=== PATIENT | male | born 1940 | race Caucasian/White ===

== ENCOUNTER 2019-04-03 06:53 | Inpatient (IN) | payer OTHER, BC ==
[2019-03-16 17:02] VITALS: BMI 29.8
[~2019-04-03 06:53] MED LIST: VANCOMYCIN 1,000 MG VIAL (RESTRICTED TO ID ONLY) IVPB ONE
[2019-04-03] MEDS ORDERED: CELECOXIB 200 MG CAPSULE PO ONE (07:05)
[2019-04-03] MEDS ORDERED: CEFAZOLIN 2 GM in DEXTROSE 5%-WATER - 50 ML IVPB ONE (07:05)
[2019-04-03] MEDS ORDERED: TRANEXAMIC ACID 1000 MG/10 ML VIAL IVPUSH ONE (07:05)
[2019-04-03] MEDS ORDERED: VANCOMYCIN 1,000 MG VIAL (RESTRICTED TO ID ONLY) ONE (07:43)
[2019-04-03] MEDS ORDERED: ceFAZolin SODIUM 1 GM VIAL ONE (07:43)
--- NOTE | 2019-04-03 07:59 | HP ---
Satellite [facility] - Chief Complaint Chief Complaint: left hip pain - Past Medical History Allergies/Adverse Reactions: Allergies Allergy/AdvReac Type Severity Reaction Status Date / Time No Known Allergies Allergy Verified 04/03/19 07:35 - Current Medications Current Medications: Home Medications Medication Instructions Recorded Citalopram Hydrobromide 20 mg PO DAILY 03/16/19 [Citalopram HBr] Diazepam 2 mg PO DAILY 03/16/19 Mirtazapine 15 mg PO HS 03/16/19 Tamsulosin HCl 0.4 mg PO DAILY 03/16/19 Satellite Physical Exam - Physical Examination Vital Signs: Vital Signs Period Temp Pulse Resp BP Sys/Chiang Pulse Ox Last 24 Hr 97.6 F 64 16 135/79 95 General Appearance: Well Nourished, Well Developed, Alert & Oriented x3 ENT: Clear Lung: Normal air movement Extremities: Other (left hip- + ttp, decr rom, nvi, xrays show grade 4 hip djd) Neurological: Intact, Alert, Oriented Satellite Impression/Plan - Impression/Plan Impression: left hip djd Operative Procedure: left jensen thr Date to be Performed: 04/03/19
[2019-04-03] MEDS ORDERED: DEXAMETHASONE SOD PHOSPHATE/PF 10 MG/ML SDV ONE (08:13)
[2019-04-03] MEDS ORDERED: MIDAZOLAM HCL 2 MG/2 ML SINGLE DOSE VIAL ONE ×2 (08:13→09:02)
[2019-04-03] MEDS ORDERED: EPINEPHrine/PF 1 MG/1 ML (1:1,000) AMPULE ONE (08:59)
[2019-04-03] MEDS ORDERED: BUPIVACAINE HCL/PF 0.5% (5 MG/ML) 30 ML VIAL IJ ONE (09:27)
[2019-04-03] MEDS ORDERED: PROPOFOL 20 ML ONE ×4 (10:06)
[2019-04-03] MEDS ORDERED: TRANEXAMIC ACID 1000 MG/10 ML VIAL ONE (10:14)
[2019-04-03] MEDS ORDERED: ONDANSETRON 4 MG/2 ML VIAL IVPUSH PRN ×2 (10:15→12:04)
[2019-04-03] MEDS ORDERED: LACTATED RINGERS SOLUTION 1,000 ML IV SCH (10:15)
[2019-04-03] MEDS ORDERED: MAG HYDROX/AL HYDROX/SIMETH 30 ML UNIT-DOSE CUP PO PRN (10:15)
[2019-04-03] MEDS ORDERED: MAGNESIUM HYDROX 2400MG/30ML ORAL SUSPENSION 30 ML CUP PO PRN (10:15)
[2019-04-03] MEDS ORDERED: ePHEDrine SULFATE 50 MG/1 ML AMPULE ONE (11:05)
[2019-04-03] MEDS ORDERED: VANCOMYCIN 1,000 MG VIAL (RESTRICTED TO ID ONLY) IVPB ONE (11:30)
--- NOTE | 2019-04-03 11:50 | OP ---
Operative Note - Note: Operative Date: 04/03/19 (riddhi) Pre-Operative Diagnosis: left hip djd Operation: left jensen thr Post-Operative Diagnosis: Same as Pre-op Surgeon: Agus Bone Mail Messenger Contractor: Bryon Robb Anesthesiologist/ACCOUNTS PAYABLE REPRESENTATIVE: Moises Carreno Anesthesia: Spinal, Local Specimens Removed: femoral head Estimated Blood Loss (mls): 200
[2019-04-03] MEDS ORDERED: oxyCODONE HCL 5 MG TABLET PO PRN (12:04)
[2019-04-03] MEDS ORDERED: PROMETHAZINE HCL 25 MG/1 ML VIAL IVPB PRN (12:04)
[2019-04-03] MEDS ORDERED: ACETAMINOPHEN 325 MG TABLET (FP) ONE (12:40)
[2019-04-03] MEDS ORDERED: traMADol HCL 50 MG TABLET PO PRN (13:02)
--- NOTE | 2019-04-03 15:36 | OP ---
DATE OF OPERATION: 04/03/2019 PREOPERATIVE DIAGNOSIS: Degenerative joint disease, left hip. POSTOPERATIVE DIAGNOSIS: Degenerative joint disease left hip. PROCEDURE: Left total hip replacement with robotic assisted navigation (MAKOplasty). SURGICAL ATTENDING: Dr. Agus Bone ENGLISH DRAWER: BRANDON Hanley ANESTHESIA: Regional and spinal. CLOSURE: Trident II 54-mm Press-Fit acetabular shell, a No. 8 Accolade II Press-Fit femoral stem, a 36-mm +7.5 ceramic femoral head, No. 1 Vicryl for fascia, 0 and 2-0 subcutaneous, V-Lock for skin with skin glue, 4-0 undyed Vicryl for pin sites. ESTIMATED BLOOD LOSS: Approximately 150 mL. COMPLICATIONS: None. CONDITION: To recovery room in stable condition. DESCRIPTION OF OPERATIVE PROCEDURE: The patient was taken to the operating room on April 03, 2019. Regional and spinal anesthesia was administered by the anesthesiologist. IV Kefzol and TXA were administered prophylactically prior to the case. Patient was placed in the lateral decubitus position with all prominences well-padded. Left hip area was prepped in the usual sterile fashion. Through 3 small stab incisions, 3 parallel pins were drilled between the 2 tables of the ilium aching excellent purchase. Two of these 3 pins were attached to the MUNA navigation array. Next, posterolateral approach was used to gain access to the hip. A 12-cm curved longitudinal incision over the posterolateral aspect of the greater trochanter was incised. Hemostasis was achieved with Bovie cautery. Sharp dissection was carried down to the level of the fascia, which was opened the entire length of the incision. A Charnley retractor was placed in that layer. Care was taken to not impale the sciatic nerve. Short external rotators were detached off the insertion of the greater tuberosity, peeled off the capsule. A capsulectomy was applied. A checkpoint was malleted in the greater trochanter. Preoperative limb lengths were obtained with the navigation device in the greater trochanter and a point on the inferior pole of the patella. The hip was then dislocated. The femoral neck was then osteotomized at the appropriate level. Anterior and posterior retractors were then placed exposing the acetabulum. A circumferential excision of the labrum was performed. The acetabulum was registered with the navigation device with initial gross registration of anterior, posterior, and superiorly and then fine registration with multiple points in and around the acetabulum. The registration was confirmed by "popping the bubbles". The acetabulum was then reamed to the appropriate depth with the 54 reamer achieving excellent bleeding surface. The Trident II 54-mm cup was then malleted into place achieving excellent fixation. Due to the coverage of the acetabular shell in the superior posterior quadrant, I elected to put 2 screws superiorly. They were drilled, depth gauged, and screwed at the appropriate length screws achieving excellent fixation. The polyethylene liner with a 10-degree lip in the superior posterior quadrant was clipped into place. Osteophytes anteriorly and inferiorly were debrided using an osteotome. Next, our attention was directed to the femur. The proximal femur was prepared by using a box chisel, canal finder, and serial broaches. This was performed until a No. 8 stem achieved excellent fit. Trial reduction with an 8 stem and a 127-degree neck and a 7.5, 36-mm head achieved equal limb length, was stable in extension and external rotation. Was stable to marked flexion and was stable to adduction at 90 degrees of flexion with a positive hang test and negative toe scoping. The navigation device also confirmed equal lengths with the contralateral side. The trial components were removed. The real components were then malleted into place. The head was cold welded and reduced. Range of motion and stability were as described earlier as well as limb lengths. The checkpoints were removed as were then the pins. The hip was pulse antibiotic irrigated. Vancomycin powder was placed in the joint. The fascia was closed using No. 1 Vicryl interrupted suture, 0 and 2-0 for subcutaneous, and 3-0 V-Lock for skin, 4-0 undyed Vicryl for pin sites. A sterile Aquacel pressure dressing was applied. Patient was placed in the supine position. Bilateral SCDs and abduction pillow were applied. Patient awakened from anesthesia and transferred to recovery in stable condition. No complications. Estimated blood loss approximately 150 mL. Lucita [id number]
[2019-04-03] MEDS: oxyCODONE HCL 5 MG TABLET PO PRN ×2 (15:58→19:51)
[2019-04-03] MEDS: CEFAZOLIN 2 GM/D5W 2 GM/50 ML ML IVPB SCH (17:29)
[2019-04-03] MEDS: ACETAMINOPHEN 325 MG TABLET (FP) PO SCH (19:50)
[2019-04-03] MEDS: oxyCODONE HCL 10 MG SUSTAINED ACTING TABLET PO SCH (21:12)
[2019-04-03] MEDS: SENNOSIDES/DOCUSATE COMBO (SENNA PLUS) TABLET (UD) PO SCH (21:12)
[2019-04-03] MEDS: MIRTAZAPINE 15 MG TABLET (FP) PO SCH (21:12)
[2019-04-04] MEDS: oxyCODONE HCL 5 MG TABLET PO PRN ×3 (00:03→18:51)
[2019-04-04] MEDS: ACETAMINOPHEN 325 MG TABLET (FP) PO SCH ×4 (01:28→20:41)
[2019-04-04] MEDS: CEFAZOLIN 2 GM/D5W 2 GM/50 ML ML IVPB SCH (01:28)
[2019-04-04] MEDS: ASPIRIN 325 MG TABLET PO SCH (07:39)
[2019-04-04] MEDS: TAMSULOSIN HCL 0.4 MG CAP PO SCH (07:39)
[2019-04-04 07:55] LABS: HEMATOCRIT 34.4 % (35.4-49); HEMOGLOBIN 11.5 GM/dl (11.7-16.9); MCH 30.9 pg (25.7-33.7); MCHC 33.5 g/dl (32.0-35.9); MEAN CELL VOLUME 92.1 fl (80-96); MEAN PLT VOLUME 8.4 fl (7.5-11.1); PLATELET COUNT 172 K/MM3 (134-434); RBC 3.73 M/mm3 (4.00-5.60); RDW 13.3 % (11.9-15.9)
--- NOTE | 2019-04-04 09:17 | PN ---
Progress Note (short form) - Note Progress Note: 78M POD1 s/p left THR under spinal anesthetic with peripheral nerve blocks. Pt states that pain is well controlled and reports no anesthetic complications. AVSS. Continue current regimen.
[2019-04-04] MEDS: PANTOPRAZOLE 40 MG TABLET (FP) PO SCH (10:22)
[2019-04-04] MEDS: CITALOPRAM HYDROBROMIDE 20 MG TABLET (FP) PO SCH (10:22)
[2019-04-04] MEDS: MULTIVITAMINS (DAILY MVI) TABLET (FP) PO SCH (10:22)
[2019-04-04] MEDS: diazePAM 2 MG TABLET PO SCH (10:22)
[2019-04-04] MEDS: SENNOSIDES/DOCUSATE COMBO (SENNA PLUS) TABLET (UD) PO SCH ×2 (10:22→21:10)
[2019-04-04] MEDS: oxyCODONE HCL 10 MG SUSTAINED ACTING TABLET PO SCH (10:22)
--- NOTE | 2019-04-04 10:23 | PN ---
Progress Note (short form) - Note Progress Note: Ortho Pt seen and examined s/p left jensen thr pod #1 Selected Entries 04/04/19 09:00 Temperature 98.9 F Pulse Rate 76 Respiratory 18 Rate Blood Pressure 101/58 L Laboratory Tests 04/04/19 07:30 WBC 16.0 H Hgb 11.5 L Hct 34.4 L Plt Count 172 dressing c/d/i, calf soft ,nt nvi a/p PT hip precautions dvt ppx pain control d/c home tomorrow if stable
[2019-04-04] MEDS: MIRTAZAPINE 15 MG TABLET (FP) PO SCH (21:10)
[2019-04-05] MEDS: ACETAMINOPHEN 325 MG TABLET (FP) PO SCH ×2 (05:49→08:22)
[2019-04-05 06:34] VITALS: BP 119/55; PULSE 81; TEMP 99.4
[2019-04-05] MEDS: oxyCODONE HCL 5 MG TABLET PO PRN (07:01)
[2019-04-05 08:08] LABS: HEMATOCRIT 29.3 % (35.4-49); HEMOGLOBIN 9.8 GM/dl (11.7-16.9); MCH 30.6 pg (25.7-33.7); MCHC 33.4 g/dl (32.0-35.9); MEAN CELL VOLUME 91.8 fl (80-96); MEAN PLT VOLUME 8.6 fl (7.5-11.1); PLATELET COUNT 142 K/MM3 (134-434); RDW 13.1 % (11.9-15.9); WHITE BLOOD COUNT 15.7 K/mm3 (4.0-10.8)
[2019-04-05] MEDS: ASPIRIN 325 MG TABLET PO SCH (08:21)
[2019-04-05] MEDS: TAMSULOSIN HCL 0.4 MG CAP PO SCH (08:21)
--- NOTE | 2019-04-05 08:26 | PN ---
Progress Note (short form) - Note Progress Note: Ortho Pt seen and examined s/p left jensen thr pod #2 Selected Entries 04/05/19 06:00 Temperature 99.4 F Pulse Rate 81 Respiratory 18 Rate Blood Pressure 119/55 L Laboratory Tests 04/05/19 07:17 WBC Pending Hgb Pending Hct Pending Plt Count Pending dressing c/d/i, calf soft ,nt nvi a/p PT hip precautions dvt ppx pain control d/c home today f/u in 1 week
--- NOTE | 2019-04-05 08:27 | DS ---
Physical Examination Vital Signs: Vital Signs Temperature 99.4 F 04/05/19 06:00 Pulse Rate 81 04/05/19 06:00 Respiratory Rate 18 04/05/19 06:00 Blood Pressure 119/55 L 04/05/19 06:00 O2 Sat by Pulse Oximetry (%) 96 04/05/19 06:00 Discharge Summary Problems reviewed: Yes Reason For Visit: OSTEOARTHRITIS Procedures: Principal: admitted for elective left jensen thr, post-op as per protocol, stable for d/c Condition: Good - Instructions Diet, Activity, Other Instructions: Post-op Instructions-Total Hip Replacement Call the office for a follow-up appointment in 1 week - [phone] Aspirin 325mg daily for 6 weeks. Pain medication was sent into your pharmacy. Apply Graduated Compression Stockings (TEDs) to both lower extremities- remove daily for hygiene ONLY Apply Sequential Compression Device (SCDs) to both Lower extremities remove for PT and hygiene ONLY Apply cold packs to affected area for 15 minutes every 2 hours. Physical Therapist will come to your home for the first 5 days. You will be set up with outpatient PT at your first post-operative visit. Patient may ambulate as tolerated-encourage self care (at least every 2-3 hours while awake) with walker or cane Maintain Aquacel (waterproof) dressing to operative wound (will be removed by surgeon at first office visit) Shower with Aquacel dressing in place-if Aquacel integrity compromised, remove and apply dry sterile dressing and notify Orthopedist. DO NOT SHOWER unless Orthopedists approves without Aquacel dressing CONTACT THE OFFICE FOR ANY CHANGE IN YOUR CONDITION (for example-fever greater than 102 degrees, excessive bleeding from operative site, purulent drainage, severe swelling or pain) GO TO THE EMERGENCY ROOM IF THERE IS A MEDICAL EMERGENCY Hip Precautions: * Keep a rolled towel under affected heel while in bed or chair (to keep knee in extension) * Dependent upon approach: * Posterior - do not cross legs; do not sit on low chairs or toilets. * If you have any questions, please do not hesitate to call the office - . Referrals: Agus Bone MD [Staff Physician] - Disposition: VNS/HOME HEALTH CARE - Home Medications Comprehensive Discharge Medication List: Ambulatory Orders Citalopram Hydrobromide [Citalopram HBr] 20 mg PO DAILY 03/16/19 Diazepam 2 mg PO DAILY 03/16/19 Mirtazapine 15 mg PO HS 03/16/19 Tamsulosin HCl 0.4 mg PO DAILY 03/16/19 Aspirin [ASA -] 325 mg PO DAILY@0800 tablet 04/03/19 Oxycodone HCl/Acetaminophen [Percocet 5-325 mg Tablet -] 1 - 2 tab PO Q6H #50 tab MDD 8 04/03/19
[2019-04-05] MEDS: CITALOPRAM HYDROBROMIDE 20 MG TABLET (FP) PO SCH (08:59)
[2019-04-05] MEDS: MULTIVITAMINS (DAILY MVI) TABLET (FP) PO SCH (08:59)
[2019-04-05] MEDS: diazePAM 2 MG TABLET PO SCH (08:59)
[2019-04-05] MEDS: PANTOPRAZOLE 40 MG TABLET (FP) PO SCH (08:59)
[2019-04-05] MEDS: SENNOSIDES/DOCUSATE COMBO (SENNA PLUS) TABLET (UD) PO SCH (08:59)
--- NOTE | 2019-04-05 12:48 | PATH ---
Surgical Pathology Report Patient Name: YOLIS MALDONADO Med. Rec. #: [id number] /Age/Gender: 1940 (Age: 78) / M Account: [id number] Location: [facility] MED-SURG Taken: 04/03/2019 Received: 04/03/2019 Reported: 04/05/2019 Physicians: Agus Bone M.D. Specimen(s) Received LEFT FEMORAL HEAD Clinical History Osteoarthritis left hip Final Diagnosis BONE, FEMORAL HEAD, LEFT, TOTAL HIP REPLACEMENT: BONE WITH DEGENERATIVE JOINT DISEASE. Electronically Signed Fariba Taylor M.D. Gross Description Received in formalin, labeled "left femoral head," is a 4.8 x 4.8 x 4.2 cm. femoral head with a 0.8 cm in length portion of femoral neck attached. The margin of resection is smooth. No areas of eburnation are identified. The articular surface is bustillo-brown and diffusely granular. The underlying trabecular bone is yellow and hard. A inbound sales representative section is submitted in one cassette, following decalcification. 04/04/2019 [facility]04/04/2019
== END 2019-04-05 11:33 | disposition home health service (06) | DRG 470 ==
LOC: FM/S 06:53
PROVIDERS: ADMIT Orthopaedic Surgery; ATTEND Orthopaedic Surgery
PROC: 8E0W0CZ Robotic Assisted Procedure of Trunk Region, Open Approach (ICD-10-PCS; 2019-04-03)
PROC: 0SRB0JA Replacement of Left Hip Joint with Synthetic Substitute, Uncemented, Open Approach (ICD-10-PCS; principal; 2019-04-03 10:26)
DX: M16.12 Unilateral primary osteoarthritis, left hip (principal)
CPT/HCPCS: 36415; 73502-TC-LT-FY; 85027; 94760; 97116-GP; 97163-GP